=== PATIENT | male | born 1950 | race Caucasian/White ===

== ENCOUNTER 2016-05-29 19:38 | Emergency (ER) | payer SELFPAY ==
[~2016-05-29] VITALS: Ht 157.5 cm; Wt 68.0 kg
[2016-05-29 22:15] VITALS: BP 141/73
[2016-05-29] MEDS ORDERED: HydrALAZINE HCL 20 MG/ML VIAL IVP ONE (22:45)
[2016-05-29] MEDS ORDERED: FOLI1TAB61 PO (22:56)
[2016-05-30 00:12] LABS: GLUCOSE,POINT OF CARE 83 MG/DL (70-110)
== END 2016-05-29 22:36 | disposition left against medical advice (07) ==
LOC: EMS 19:45
DX: T82.49XD Other complication of vascular dialysis catheter, subsequent encounter (principal)
CPT/HCPCS: 82962; 99281; 99282

== ENCOUNTER 2016-05-29 22:52 | Inpatient (IN) | payer MEDICARE ==
[~2016-05-29] VITALS: Ht 165.1 cm; Wt 58.1 kg
[2016-05-29] MEDS ORDERED: FOLI1TAB61 PO (22:56)
[2016-05-29 23:47] LABS: BASOPHILS % (AUTO) 0.5 % (0.0-2.0); EOSINOPHILS % (AUTO) 5.3 % (1.0-6.0); HEMATOCRIT 33.7 % (41-53); HEMOGLOBIN 11.3 g/dL (13.5-17.5); LYMPHOCYTES # (AUTO) 1.1 K/uL (1.0-4.8); LYMPHOCYTES % (AUTO) 20.4 % (22.0-44.0); MEAN CORPUSCULAR HEMOGLOBIN 34.2 pg (26.0-34.0); MEAN CORPUSCULAR HGB CONC 33.5 G/dL (31.0-37.0); MEAN CORPUSCULAR VOLUME 102 fL (80-100); MONOCYTES # (AUTO) 0.4 K/uL (0.1-1.0); NEUTROPHILS # (AUTO) 3.7 K/uL (1.8-7.7); NEUTROPHILS % (AUTO) 66.8 % (40.0-70.0); PLATELET COUNT (AUTO) 160 K/uL (150-450); RED BLOOD CELL COUNT(AUTO) 3.31 MIL/uL (4.50-5.90); RED CELL DISTRIBUTION WIDTH 15.2 % (11.5-14.5); WHITE BLOOD COUNT (AUTO) 5.5 K/uL (4.5-11.0)
[2016-05-29 23:51] LABS: APPEARANCE,URINE CLOUDY (CLEAR); GLUCOSE, URINE (UA) NEGATIVE (NEGATIVE); KETONES,URINE NEGATIVE (NEGATIVE); LEUKOCYTE ESTERASE ,URINE LARGE (NEGATIVE); OCCULT BLOOD,URINE SMALL (NEGATIVE); PROTEIN,URINE SEE CONFIRM (NEGATIVE)
[2016-05-30] LABS: ANION GAP 14 mmol/L (8-16); CALCIUM, TOTAL 8.6 mg/dL (8.8-10.5); CARBON DIOXIDE 19 mmol/L (22-29); CHLORIDE 103 mmol/L (98-107); GLOMERULAR FILTR. RATE CALC 6 mL/min (>60); POTASSIUM 5.3 mmol/L (3.5-5.1); SODIUM SERUM 136 mmol/L (136-145); UREA NITROGEN, BLOOD 92 mg/dL (7-18)
[2016-05-30 00:06] LABS: ALANINE AMINOTRANSFERASE 56 U/L (12-78); ALBUMIN 3.6 g/dL (3.4-5.0); ASPARTATE AMINOTRANSFERASE 40 U/L (15-37); BILIRUBIN,TOTAL 0.6 mg/dL (0.1-1.0); LACTIC ACID 0.9 mmol/L (0.4-2.0); TOTAL PROTEIN, SERUM 8.1 g/dL (6.4-8.2)
[2016-05-30 00:08] LABS: B-TYPE NATRIURETIC PEPTIDE 302 pg/mL (0-100)
[2016-05-30 00:15] LABS: SQUAMOUS EPITHELIAL CELL,UR Few /LPF (None Seen); WBC,URINE >100 /HPF (0-5)
[2016-05-30 00:17] LABS: SULFOSALICYLIC ACID,URINE 2+ (Negative)
[2016-05-30 01:08] LABS: RBC MORPHOLOGY COMMENT ABNORMAL RBC MORPH
[2016-05-30] MEDS ORDERED: 0.9% SODIUM CHLORIDE 10 ML SYRINGE IVP PRN (01:45)
[2016-05-30] MEDS ORDERED: ACETAMINOPHEN 325 MG TABLET PO PRN ×2 (01:45→02:45)
[2016-05-30] MEDS ORDERED: ONDANSETRON HCL 4 MG/2 ML VIAL IVP PRN ×2 (01:45→02:45)
[2016-05-30] MEDS ORDERED: SODIUM POLYSTYRENE SULFONATE 15 GM/60 ML SUSPENSION BOTTLE PO ONE (01:45)
[2016-05-30] MEDS ORDERED: MAGNESIUM HYDROXIDE SUSPENSION 30 ML UDCUP PO PRN (02:45)
[2016-05-30] MEDS ORDERED: IPRATROPIUM BROMIDE 0.5 MG/2.5 ML NEB SOLUTION NEB PRN (02:45)
[2016-05-30] MEDS ORDERED: HYDROCODONE/ACETAMINOPHEN 5-325 MG TABLET PO PRN (02:45)
[2016-05-30] MEDS ORDERED: BISACODYL 10 MG RECTAL RECTAL SUPPOSITORY PR PRN (02:45)
[2016-05-30] MEDS ORDERED: ALBUTEROL SULFATE 2.5 MG/0.5 ML NEB SOLUTION NEB PRN (02:45)
[2016-05-30] MEDS ORDERED: ZOLPIDEM TARTRATE 5 MG TABLET PO PRN (02:45)
[2016-05-30 03:18] VITALS: BP 134/69
[2016-05-30 08:11] VITALS: BP 162/77
[2016-05-30] MEDS ORDERED: MIDODRINE HCL 5 MG TABLET PO PRN (08:30)
[2016-05-30] MEDS: -PHARMACY NOTE- MISC SCH ×2 (09:00)
[2016-05-30 10:00] LABS: BASOPHILS % (AUTO) 0.4 % (0.0-2.0); EOSINOPHILS % (AUTO) 6.9 % (1.0-6.0); HEMATOCRIT 28.4 % (41-53); HEMOGLOBIN 9.5 g/dL (13.5-17.5); LYMPHOCYTES # (AUTO) 0.8 K/uL (1.0-4.8); LYMPHOCYTES % (AUTO) 24.6 % (22.0-44.0); MEAN CORPUSCULAR HEMOGLOBIN 33.7 pg (26.0-34.0); MEAN CORPUSCULAR HGB CONC 33.6 G/dL (31.0-37.0); MEAN CORPUSCULAR VOLUME 101 fL (80-100); MONOCYTES # (AUTO) 0.3 K/uL (0.1-1.0); MONOCYTES % (AUTO) 9.6 % (2.0-9.0); NEUTROPHILS # (AUTO) 1.9 K/uL (1.8-7.7); NEUTROPHILS % (AUTO) 58.5 % (40.0-70.0); PLATELET COUNT (AUTO) 123 K/uL (150-450); RED BLOOD CELL COUNT(AUTO) 2.83 MIL/uL (4.50-5.90); RED CELL DISTRIBUTION WIDTH 15.4 % (11.5-14.5); WHITE BLOOD COUNT (AUTO) 3.2 K/uL (4.5-11.0)
[2016-05-30 10:10] LABS: ALBUMIN 2.9 g/dL (3.4-5.0); BILIRUBIN,TOTAL 0.4 mg/dL (0.1-1.0); CALCIUM, TOTAL 8.2 mg/dL (8.8-10.5); CREATININE 8.8 mg/dL (0.60-1.30); POTASSIUM 4.8 mmol/L (3.5-5.1); TOTAL PROTEIN, SERUM 6.4 g/dL (6.4-8.2)
[2016-05-30 10:12] LABS: RBC MORPHOLOGY COMMENT ABNORMAL RBC MORPH
[2016-05-30] MEDS: CIPROFLOXACIN HCL 500 MG TABLET PO SCH ×2 (10:18→20:36)
[2016-05-30] MEDS: PANTOPRAZOLE SODIUM 40 MG DR TABLET PO SCH (10:18)
[2016-05-30] MEDS: VITAMIN B COMP/VIT C/FOLIC ACID CAPSULE PO SCH (10:18)
[2016-05-30 20:18] VITALS: BP 125/75
[2016-05-31 00:08] VITALS: BP 135/75
[2016-05-31] MEDS: EPOETIN ALFA 10,000 UNITS/ML VIAL SQ SCH ×2 (09:00→09:04)
[2016-05-31] MEDS: -PHARMACY NOTE- MISC SCH ×2 (09:00)
[2016-05-31] MEDS: PANTOPRAZOLE SODIUM 40 MG DR TABLET PO SCH (09:04)
[2016-05-31] MEDS: CIPROFLOXACIN HCL 500 MG TABLET PO SCH (09:04)
[2016-05-31] MEDS: VITAMIN B COMP/VIT C/FOLIC ACID CAPSULE PO SCH (09:04)
[2016-05-31 09:32] LABS: BASOPHILS % (AUTO) 0.6 % (0.0-2.0); EOSINOPHILS % (AUTO) 3.7 % (1.0-6.0); HEMATOCRIT 36.1 % (41-53); HEMOGLOBIN 12.2 g/dL (13.5-17.5); LYMPHOCYTES # (AUTO) 0.9 K/uL (1.0-4.8); LYMPHOCYTES % (AUTO) 18.3 % (22.0-44.0); MEAN CORPUSCULAR HEMOGLOBIN 34.2 pg (26.0-34.0); MEAN CORPUSCULAR HGB CONC 33.8 G/dL (31.0-37.0); MEAN CORPUSCULAR VOLUME 101 fL (80-100); MONOCYTES # (AUTO) 0.4 K/uL (0.1-1.0); MONOCYTES % (AUTO) 8.6 % (2.0-9.0); NEUTROPHILS # (AUTO) 3.5 K/uL (1.8-7.7); NEUTROPHILS % (AUTO) 68.8 % (40.0-70.0); PLATELET COUNT (AUTO) 196 K/uL (150-450); RED BLOOD CELL COUNT(AUTO) 3.58 MIL/uL (4.50-5.90); RED CELL DISTRIBUTION WIDTH 15.6 % (11.5-14.5); WHITE BLOOD COUNT (AUTO) 5.1 K/uL (4.5-11.0)
[2016-05-31 09:55] LABS: ALBUMIN 3.6 g/dL (3.4-5.0); BILIRUBIN,TOTAL 0.6 mg/dL (0.1-1.0); CALCIUM, TOTAL 9.4 mg/dL (8.8-10.5); CHOL/HDL RATIO 2.9 (4.2-7.3); CREATININE 5.12 mg/dL (0.60-1.30); MAGNESIUM 1.7 mg/dL (1.80-2.40); PHOSPHORUS 4.7 mg/dL (2.5-4.9); POTASSIUM 4.2 mmol/L (3.5-5.1); THYROID STIMULATING HORMONE 1.3 uIU/mL (0.36-3.74); TOTAL PROTEIN, SERUM 8.1 g/dL (6.4-8.2)
[2016-05-31] MEDS ORDERED: LIDOCAINE HCL/PF 1% 2 ML VIAL ID PRN (10:00)
[2016-05-31] MEDS ORDERED: MANNITOL 25%-12.5 GM/50 ML VIAL IVP PRN (10:00)
[2016-05-31] MEDS ORDERED: ALBUMIN HUMAN 25%-12.5GM/50ML IV BOTTLE IV PRN (10:00)
[2016-05-31 10:08] LABS: RBC MORPHOLOGY COMMENT ABNORMAL RBC MORPH
[2016-05-31] MEDS ORDERED: LIDOCAINE HCL/PF 1% 2 ML VIAL IM ONE (14:04)
[2016-05-31] MEDS ORDERED: ALBUMIN HUMAN 25%-12.5GM/50ML IV BOTTLE IV ONE (14:04)
== END 2016-05-31 14:05 | disposition home or self-care (01) | DRG 682 ==
LOC: EMS 22:58 → 6N 05-30 03:12
PROVIDERS: ADMIT Internal Medicine; ATTEND Internal Medicine
PROC: 5A1D60Z (ICD-10-PCS; principal; 2016-05-30)
DX: I12.0 Hypertensive chronic kidney disease with stage 5 chronic kidney disease or end stage renal disease (principal); N18.6 End stage renal disease; N39.0 Urinary tract infection, site not specified; E87.5 Hyperkalemia; E83.51 Hypocalcemia; F02.80 Dementia in other diseases classified elsewhere, unspecified severity, without behavioral disturbance, psychotic disturbance, mood disturbance, and anxiety; G30.9 Alzheimer's disease, unspecified; D63.1 Anemia in chronic kidney disease; Z53.29 Procedure and treatment not carried out because of patient's decision for other reasons; Z99.2 Dependence on renal dialysis
CPT/HCPCS: 82306; 83540; 83550; 83605; 83735; 83970; 84100; 84443; 87086; 87340; 93005; 99285; G0480; J0885; J2405; J3490; P9047

== ENCOUNTER 2016-06-22 09:27 | Inpatient (IN) | payer MEDICARE ==
[~2016-06-22] VITALS: Ht 157.5 cm; Wt 61.0 kg
[~2016-06-22 09:27] MED LIST: FOLI1TAB61 PO
[2016-06-22] MEDS ORDERED: ACETAMINOPHEN 325 MG TABLET PO ONE (10:00)
[2016-06-22 10:23] LABS: BASOPHILS % (AUTO) 0.1 % (0.0-2.0); EOSINOPHILS % (AUTO) 0 % (1.0-6.0); HEMATOCRIT 31.3 % (41-53); HEMOGLOBIN 10.4 g/dL (13.5-17.5); LYMPHOCYTES # (AUTO) 0.1 K/uL (1.0-4.8); LYMPHOCYTES % (AUTO) 2.2 % (22.0-44.0); MEAN CORPUSCULAR HEMOGLOBIN 33.6 pg (26.0-34.0); MEAN CORPUSCULAR HGB CONC 33.3 G/dL (31.0-37.0); MEAN CORPUSCULAR VOLUME 101 fL (80-100); MONOCYTES # (AUTO) 0.2 K/uL (0.1-1.0); MONOCYTES % (AUTO) 3.5 % (2.0-9.0); NEUTROPHILS # (AUTO) 6.2 K/uL (1.8-7.7); NEUTROPHILS % (AUTO) 94.2 % (40.0-70.0); PLATELET COUNT (AUTO) 126 K/uL (150-450); RED CELL DISTRIBUTION WIDTH 14.7 % (11.5-14.5); WHITE BLOOD COUNT (AUTO) 6.6 K/uL (4.5-11.0)
[2016-06-22 10:24] LABS: CALCIUM, TOTAL 8.4 mg/dL (8.8-10.5); POTASSIUM 4.4 mmol/L (3.5-5.1)
[2016-06-22 10:32] LABS: CREATININE 8.01 mg/dL (0.60-1.30)
[2016-06-22 10:38] LABS: LACTIC ACID 1.2 mmol/L (0.4-2.0)
[2016-06-22 10:42] LABS: ALBUMIN 3.3 g/dL (3.4-5.0); BILIRUBIN,TOTAL 0.8 mg/dL (0.1-1.0)
[2016-06-22 10:43] LABS: TOTAL PROTEIN, SERUM 7.7 g/dL (6.4-8.2)
[2016-06-22 10:46] LABS: RBC MORPHOLOGY COMMENT ABNORMAL RBC MORPH
[2016-06-22 11:04] LABS: APPEARANCE,URINE CLOUDY (CLEAR); GLUCOSE, URINE (UA) NEGATIVE (NEGATIVE); KETONES,URINE NEGATIVE (NEGATIVE); LEUKOCYTE ESTERASE ,URINE LARGE (NEGATIVE); OCCULT BLOOD,URINE LARGE (NEGATIVE); PROTEIN,URINE SEE CONFIRM (NEGATIVE)
[2016-06-22 11:11] LABS: RBC,URINE >100 /HPF (0-2); SULFOSALICYLIC ACID,URINE 4+ (Negative)
[2016-06-22 11:12] LABS: WBC,URINE 51-100 /HPF (0-5)
[2016-06-22 11:14] LABS: SQUAMOUS EPITHELIAL CELL,UR Few /LPF (None Seen)
[2016-06-22 11:19] LABS: PROCALCITONIN (PCT) 0.99 ng/mL (<0.50)
[2016-06-22] MEDS ORDERED: CefTRIAXone 1 GM/DEXTROSE 50 ML IV ONE (11:30)
[2016-06-22] MEDS ORDERED: LIDOCAINE HCL/PF 1% 2 ML VIAL INJ ONE (12:00)
[2016-06-22] MEDS ORDERED: ACETAMINOPHEN 325 MG TABLET PO PRN (12:30)
[2016-06-22] MEDS ORDERED: ONDANSETRON HCL 4 MG/2 ML VIAL IVP PRN (12:30)
[2016-06-22] MEDS ORDERED: 0.9% SODIUM CHLORIDE 10 ML SYRINGE IVP PRN (13:15)
[2016-06-22 13:32] VITALS: BP 102/57
[2016-06-22 16:21] VITALS: BP 97/57
[2016-06-22] MEDS ORDERED: SODIUM CHLORIDE 0.9% 2,000 ML IV ONE (16:34)
[2016-06-22] MEDS ORDERED: ALBUMIN HUMAN 25%-12.5GM/50ML IV BOTTLE IV PRN (17:00)
[2016-06-22] MEDS ORDERED: MANNITOL 25%-12.5 GM/50 ML VIAL IVP PRN (17:00)
[2016-06-22] MEDS ORDERED: VANCOMYCIN HCL 1 GM/D5% WATER 200 ML IV ONE (17:00)
[2016-06-22] MEDS ORDERED: VANCOMYCIN HCL 1 GM/D5% WATER 200 ML IV PRN (17:00)
[2016-06-22 19:22] LABS: CALCIUM, TOTAL 8.6 mg/dL (8.8-10.5); CREATININE 4.01 mg/dL (0.60-1.30); POTASSIUM 4.1 mmol/L (3.5-5.1)
[2016-06-22 21:14] VITALS: BP 105/63
[2016-06-22 23:50] VITALS: BP 100/58
[2016-06-23 04:54] VITALS: BP 104/64
[2016-06-23] MEDS ORDERED: PNEUMOCOCCAL VACCINE POLYVALENT 0.5 ML VIAL [PPSV23] IM ONE (06:15)
[2016-06-23 07:20] VITALS: BP 101/47
[2016-06-23 09:36] LABS: BASOPHILS % (AUTO) 0.1 % (0.0-2.0); EOSINOPHILS % (AUTO) 0.03 % (1.0-6.0); HEMATOCRIT 29.3 % (41-53); HEMOGLOBIN 10.1 g/dL (13.5-17.5); LYMPHOCYTES # (AUTO) 0.3 K/uL (1.0-4.8); LYMPHOCYTES % (AUTO) 5.1 % (22.0-44.0); MEAN CORPUSCULAR HEMOGLOBIN 34.9 pg (26.0-34.0); MEAN CORPUSCULAR HGB CONC 34.4 G/dL (31.0-37.0); MEAN CORPUSCULAR VOLUME 101 fL (80-100); MONOCYTES # (AUTO) 0.6 K/uL (0.1-1.0); MONOCYTES % (AUTO) 10.4 % (2.0-9.0); NEUTROPHILS # (AUTO) 4.8 K/uL (1.8-7.7); NEUTROPHILS % (AUTO) 84.4 % (40.0-70.0); PLATELET COUNT (AUTO) 117 K/uL (150-450); RED BLOOD CELL COUNT(AUTO) 2.89 MIL/uL (4.50-5.90); RED CELL DISTRIBUTION WIDTH 15.1 % (11.5-14.5); WHITE BLOOD COUNT (AUTO) 5.7 K/uL (4.5-11.0)
[2016-06-23 10:00] LABS: CALCIUM, TOTAL 8.7 mg/dL (8.8-10.5); CREATININE 5.96 mg/dL (0.60-1.30); PHOSPHORUS 6.6 mg/dL (2.5-4.9); POTASSIUM 5.8 mmol/L (3.5-5.1)
[2016-06-23 10:05] LABS: RBC MORPHOLOGY COMMENT ABNORMAL RBC MORPH
[2016-06-23] MEDS ORDERED: SODIUM POLYSTYRENE SULFONATE 15 GM/60 ML SUSPENSION BOTTLE PO ONE (10:30)
[2016-06-23] MEDS ORDERED: SODIUM CHLORIDE 0.9% 250 ML IV ONE (10:51)
[2016-06-23] MEDS: CefTRIAXone 1 GM/DEXTROSE 50 ML IV SCH ×2 (11:00→13:17)
[2016-06-23 11:08] VITALS: BP 117/74
[2016-06-23 15:20] VITALS: BP 116/62
[2016-06-23 19:23] VITALS: BP 96/57
[2016-06-23 23:40] VITALS: BP 109/51
[2016-06-24 04:39] VITALS: BP 104/56
[2016-06-24 07:15] VITALS: BP 92/60
[2016-06-24 07:57] LABS: CREATININE 7.22 mg/dL (0.60-1.30); MAGNESIUM 1.8 mg/dL (1.80-2.40); PHOSPHORUS 5.8 mg/dL (2.5-4.9); POTASSIUM 3.6 mmol/L (3.5-5.1)
[2016-06-24] MEDS ORDERED: VANCOMYCIN HCL 1 GM/D5% WATER 200 ML IV ONE (11:00)
[2016-06-24 11:14] VITALS: BP 114/59
[2016-06-24 15:46] VITALS: BP 101/61
[2016-06-24 20:34] VITALS: BP 109/64
[2016-06-25] VITALS (7 sets, daily range): BP systolic 108–131; BP diastolic 48–71
[2016-06-25] MEDS: EPOETIN ALFA 10,000 UNITS/ML 2 ML VIAL SQ SCH (08:00)
[2016-06-25] MEDS ORDERED: SODIUM CHLORIDE 0.9% 2,000 ML IV ONE (11:01)
[2016-06-26 04:26] LABS: APPEARANCE,URINE CLOUDY (CLEAR); GLUCOSE, URINE (UA) NEGATIVE (NEGATIVE); KETONES,URINE NEGATIVE (NEGATIVE); LEUKOCYTE ESTERASE ,URINE LARGE (NEGATIVE); OCCULT BLOOD,URINE NEGATIVE (NEGATIVE); PH,URINE 8.5 (5.0-8.0); PROTEIN,URINE SEE CONFIRM (NEGATIVE)
[2016-06-26 05:06] LABS: RBC,URINE 0-2 /HPF (0-2); SULFOSALICYLIC ACID,URINE 3+ (Negative)
[2016-06-26 05:07] LABS: SQUAMOUS EPITHELIAL CELL,UR Few /LPF (None Seen); WBC,URINE 26-50 /HPF (0-5)
[2016-06-26 05:48] VITALS: BP 123/71
[2016-06-26 12:49] VITALS: BP 95/55
[2016-06-26 19:38] VITALS: BP 98/48
[2016-06-26 23:48] VITALS: BP 100/60
[2016-06-27 04:57] VITALS: BP 111/59
[2016-06-27 07:00] LABS: BASOPHILS # (AUTO) 0.02 K/uL (0.00-0.20); BASOPHILS % (AUTO) 0.4 % (0.0-2.0); EOSINOPHILS # (AUTO) 0.13 K/uL (0.00-0.70); EOSINOPHILS % (AUTO) 2.62 % (1.0-6.0); HEMATOCRIT 26.2 % (41-53); HEMOGLOBIN 8.9 g/dL (13.5-17.5); LYMPHOCYTES # (AUTO) 0.8 K/uL (1.0-4.8); MEAN CORPUSCULAR HEMOGLOBIN 33.8 pg (26.0-34.0); MEAN CORPUSCULAR HGB CONC 33.9 G/dL (31.0-37.0); MEAN CORPUSCULAR VOLUME 100 fL (80-100); MONOCYTES # (AUTO) 0.5 K/uL (0.1-1.0); MONOCYTES % (AUTO) 10.6 % (2.0-9.0); NEUTROPHILS # (AUTO) 3.4 K/uL (1.8-7.7); NEUTROPHILS % (AUTO) 69.4 % (40.0-70.0); PLATELET COUNT (AUTO) 114 K/uL (150-450); RED BLOOD CELL COUNT(AUTO) 2.63 MIL/uL (4.50-5.90); RED CELL DISTRIBUTION WIDTH 14.5 % (11.5-14.5); WHITE BLOOD COUNT (AUTO) 4.8 K/uL (4.5-11.0)
[2016-06-27 07:18] VITALS: BP 107/56
[2016-06-27 07:36] LABS: CREATININE 6.98 mg/dL (0.60-1.30); POTASSIUM 4.5 mmol/L (3.5-5.1)
[2016-06-27] MEDS ORDERED: SODIUM CHLORIDE 0.9% 2,000 ML IV ONE (07:55)
[2016-06-27] MEDS ORDERED: VANCOMYCIN HCL 1 GM/D5% WATER 200 ML IV ONE (08:00)
[2016-06-27] MEDS ORDERED: MANNITOL 25%-12.5 GM/50 ML VIAL IVP PRN ×2 (08:15→14:00)
[2016-06-27] MEDS: EPOETIN ALFA 10,000 UNITS/ML 2 ML VIAL SQ SCH (13:09)
[2016-06-27] MEDS ORDERED: LIDOCAINE HCL/PF 1% 2 ML VIAL ID PRN (14:00)
[2016-06-27 15:37] VITALS: BP 118/72
[2016-06-27] MEDS ORDERED: LIDOCAINE HCL/PF 1% 2 ML VIAL IM ONE (16:45)
[2016-06-27 19:30] VITALS: BP 92/54
[2016-06-27 23:22] VITALS: BP 116/57
[2016-06-28 04:28] VITALS: BP 99/58
[2016-06-28] MEDS: ACETAMINOPHEN 325 MG TABLET PO PRN (06:11)
[2016-06-28 07:21] VITALS: BP 99/51
[2016-06-28 11:46] VITALS: BP 111/65
[2016-06-28 15:53] VITALS: BP 110/58
[2016-06-28 19:57] VITALS: BP 119/65
[2016-06-28 23:58] VITALS: BP 121/69
[2016-06-29 05:00] VITALS: BP 106/62
[2016-06-29 07:28] VITALS: BP 119/70
[2016-06-29] MEDS: ACETAMINOPHEN 325 MG TABLET PO PRN (13:26)
[2016-06-29] MEDS ORDERED: VANCOMYCIN HCL 1.25 GM in DEXTROSE 5%-WATER 250 ML IV ONE (17:00)
[2016-06-29] MEDS: CALCIUM ACETATE 667 MG CAPSULE PO SCH (18:44)
[2016-06-29] MEDS: EPOETIN ALFA 10,000 UNITS/ML 2 ML VIAL SQ SCH (18:44)
[2016-06-29 20:00] VITALS: BP 133/75
[2016-06-29] MEDS ORDERED: PIPERACILLIN SODIUM/TAZOBACTAM 0.75 GM in DEXTROSE 5%-WATER 50 ML IV PRN (22:15)
[2016-06-29 23:39] VITALS: BP 123/67
[2016-06-30] MEDS ORDERED: PIPERACILLIN SODIUM/TAZOBACTAM 2.25 GM in DEXTROSE 5%-WATER 50 ML IV SCH ×2
[2016-06-30 04:44] VITALS: BP 122/64
[2016-06-30] MEDS: ACETAMINOPHEN 325 MG TABLET PO PRN (06:47)
[2016-06-30] MEDS: CALCIUM ACETATE 667 MG CAPSULE PO SCH (08:02)
== END 2016-06-30 11:03 | disposition home or self-care (01) | DRG 871 ==
LOC: EMS 09:28 → 6N 12:32
PROVIDERS: ADMIT Family Medicine; ATTEND Family Medicine
PROC: 5A1D60Z (ICD-10-PCS; principal; 2016-06-22)
DX: A41.02 Sepsis due to Methicillin resistant Staphylococcus aureus (principal); N18.6 End stage renal disease; N39.0 Urinary tract infection, site not specified; I12.0 Hypertensive chronic kidney disease with stage 5 chronic kidney disease or end stage renal disease; T82.868A Thrombosis due to vascular prosthetic devices, implants and grafts, initial encounter; I82.602 Acute embolism and thrombosis of unspecified veins of left upper extremity; J44.9 Chronic obstructive pulmonary disease, unspecified; E87.5 Hyperkalemia; D63.1 Anemia in chronic kidney disease; F03.90 Unspecified dementia, unspecified severity, without behavioral disturbance, psychotic disturbance, mood disturbance, and anxiety; E21.3 Hyperparathyroidism, unspecified; I70.0 Atherosclerosis of aorta; F43.21 Adjustment disorder with depressed mood; I34.0 Nonrheumatic mitral (valve) insufficiency; I07.1 Rheumatic tricuspid insufficiency; Z53.29 Procedure and treatment not carried out because of patient's decision for other reasons; Y84.1 Kidney dialysis as the cause of abnormal reaction of the patient, or of later complication, without mention of misadventure at the time of the procedure; Y92.89 Other specified places as the place of occurrence of the external cause; Y93.89 Activity, other specified; Z79.899 Other long term (current) drug therapy; Z98.890 Other specified postprocedural states; Z99.2 Dependence on renal dialysis; Y99.8 Other external cause status; Z28.21 Immunization not carried out because of patient refusal
CPT/HCPCS: 51701; 83605; 83735; 83970; 84100; 84145; 87040; 87086; 87340; 93005; 93306; 93990; 96365; 99285; J0696; J0885; J2543; J3370; J3490; J7030; J7050; J7060

== ENCOUNTER 2016-11-22 12:13 | Inpatient (IN) | payer MEDICAID, MEDICARE ==
[~2016-11-22] VITALS: Ht 152.4 cm; Wt 62.0 kg
[2016-11-22 12:46] LABS: BASOPHILS % (AUTO) 0.4 % (0.0-2.0); EOSINOPHILS % (AUTO) 3.9 % (1.0-6.0); HEMOGLOBIN 8.9 g/dL (13.5-17.5); LYMPHOCYTES # (AUTO) 0.8 K/uL (1.0-4.8); LYMPHOCYTES % (AUTO) 17.1 % (22.0-44.0); MEAN CORPUSCULAR HEMOGLOBIN 33.8 pg (26.0-34.0); MEAN CORPUSCULAR HGB CONC 34.4 G/dL (31.0-37.0); MEAN CORPUSCULAR VOLUME 98 fL (80-100); MONOCYTES # (AUTO) 0.3 K/uL (0.1-1.0); MONOCYTES % (AUTO) 7.2 % (2.0-9.0); NEUTROPHILS # (AUTO) 3.2 K/uL (1.8-7.7); NEUTROPHILS % (AUTO) 71.4 % (40.0-70.0); PLATELET COUNT (AUTO) 159 K/uL (150-450); RED BLOOD CELL COUNT(AUTO) 2.64 MIL/uL (4.50-5.90); RED CELL DISTRIBUTION WIDTH 14.6 % (11.5-14.5); WHITE BLOOD COUNT (AUTO) 4.6 K/uL (4.5-11.0)
[2016-11-22 12:57] LABS: CALCIUM, TOTAL 8.9 mg/dL (8.8-10.5); CREATININE 13.35 mg/dL (0.60-1.30); POTASSIUM 5.3 mmol/L (3.5-5.1)
[2016-11-22] MEDS ORDERED: ACETAMINOPHEN 325 MG TABLET PO PRN (14:00)
[2016-11-22] MEDS ORDERED: ONDANSETRON HCL 4 MG/2 ML VIAL IVP PRN (14:00)
[2016-11-22] MEDS ORDERED: EPOETIN ALFA 10,000 UNITS/ML 2 ML VIAL SQ PRN (14:30)
[2016-11-22 15:08] VITALS: BP 161/93
[2016-11-22] MEDS ORDERED: PNEUMOCOCCAL VACCINE POLYVALENT 0.5 ML VIAL [PPSV23] IM ONE (18:30)
[2016-11-22 20:00] VITALS: BP 147/89
[2016-11-23] VITALS: BP 148/68
[2016-11-23 04:00] VITALS: BP 151/87
[2016-11-23 07:19] VITALS: BP 146/86
[2016-11-23 08:07] LABS: BASOPHILS % (AUTO) 0.5 % (0.0-2.0); EOSINOPHILS % (AUTO) 6.8 % (1.0-6.0); HEMATOCRIT 26.7 % (41-53); HEMOGLOBIN 9.4 g/dL (13.5-17.5); LYMPHOCYTES # (AUTO) 0.8 K/uL (1.0-4.8); LYMPHOCYTES % (AUTO) 17.9 % (22.0-44.0); MEAN CORPUSCULAR HEMOGLOBIN 34.3 pg (26.0-34.0); MEAN CORPUSCULAR HGB CONC 35.1 G/dL (31.0-37.0); MEAN CORPUSCULAR VOLUME 98 fL (80-100); MONOCYTES # (AUTO) 0.4 K/uL (0.1-1.0); NEUTROPHILS # (AUTO) 3.1 K/uL (1.8-7.7); NEUTROPHILS % (AUTO) 66.8 % (40.0-70.0); PLATELET COUNT (AUTO) 163 K/uL (150-450); RED BLOOD CELL COUNT(AUTO) 2.74 MIL/uL (4.50-5.90); RED CELL DISTRIBUTION WIDTH 14.8 % (11.5-14.5); WHITE BLOOD COUNT (AUTO) 4.7 K/uL (4.5-11.0)
[2016-11-23] MEDS ORDERED: SODIUM CHLORIDE 0.9% 1,000 ML IV ONE ×2 (08:38→08:39)
[2016-11-23 08:40] LABS: CALCIUM, TOTAL 8.5 mg/dL (8.8-10.5); CREATININE 14.21 mg/dL (0.60-1.30); PHOSPHORUS 5.9 mg/dL (2.5-4.9); POTASSIUM 5.5 mmol/L (3.5-5.1)
[2016-11-23] MEDS ORDERED: MANNITOL 25%-12.5 GM/50 ML VIAL IVP PRN (11:45)
[2016-11-23] MEDS ORDERED: ALBUMIN HUMAN 25%-12.5GM/50ML IV BOTTLE IV PRN (11:45)
[2016-11-23] MEDS: PANTOPRAZOLE SODIUM 40 MG DR TABLET PO SCH (11:47)
[2016-11-23] MEDS: VITAMIN B COMP/VIT C/FOLIC ACID CAPSULE PO SCH (11:47)
[2016-11-23] MEDS: CALCITRIOL 0.25 MCG CAPSULE PO SCH (11:47)
[2016-11-23] MEDS: AmLODIPine BESYLATE 10 MG TABLET PO SCH (14:32)
[2016-11-23 15:32] VITALS: BP 145/76
[2016-11-23 21:12] VITALS: BP 118/54
[2016-11-23] MEDS: ACETAMINOPHEN 325 MG TABLET PO PRN (23:19)
[2016-11-24 04:53] VITALS: BP 151/85
[2016-11-24] MEDS: VITAMIN B COMP/VIT C/FOLIC ACID CAPSULE PO SCH (08:02)
[2016-11-24] MEDS: PANTOPRAZOLE SODIUM 40 MG DR TABLET PO SCH (08:02)
[2016-11-24] MEDS: AmLODIPine BESYLATE 10 MG TABLET PO SCH (08:02)
[2016-11-24 08:04] VITALS: BP 151/86
[2016-11-24 08:56] LABS: CALCIUM, TOTAL 8.5 mg/dL (8.8-10.5); CREATININE 10.05 mg/dL (0.60-1.30); POTASSIUM 5.9 mmol/L (3.5-5.1)
[2016-11-24] MEDS ORDERED: SODIUM POLYSTYRENE SULFONATE 15 GM/60 ML SUSPENSION BOTTLE PR ONE (10:45)
[2016-11-24 19:55] VITALS: BP 146/84
[2016-11-24] MEDS: ACETAMINOPHEN 325 MG TABLET PO PRN (20:09)
[2016-11-24 23:58] VITALS: BP 134/70
[2016-11-25] MEDS: ACETAMINOPHEN 325 MG TABLET PO PRN ×3 (02:53→19:50)
[2016-11-25 05:03] VITALS: BP 122/65
[2016-11-25 07:32] VITALS: BP 143/78
[2016-11-25] MEDS: VITAMIN B COMP/VIT C/FOLIC ACID CAPSULE PO SCH (09:44)
[2016-11-25] MEDS: AmLODIPine BESYLATE 10 MG TABLET PO SCH (09:44)
[2016-11-25] MEDS: PANTOPRAZOLE SODIUM 40 MG DR TABLET PO SCH (09:44)
[2016-11-25] MEDS: LORazepam 1 MG TABLET PO PRN ×2 (09:44→15:37)
[2016-11-25 15:25] VITALS: BP 147/77
[2016-11-25] MEDS: SODIUM BICARBONATE 650 MG TABLET PO SCH ×2 (15:37→19:45)
[2016-11-25] MEDS ORDERED: LORazepam 1 MG TABLET PO SCH (16:00)
[2016-11-25 19:43] VITALS: BP 118/63
[2016-11-25] MEDS: HYDROCODONE/ACETAMINOPHEN 5-325 MG TABLET PO PRN (23:10)
[2016-11-25 23:38] VITALS: BP 138/84
[2016-11-26] MEDS: LORazepam 1 MG TABLET PO PRN (04:42)
[2016-11-26 05:01] VITALS: BP 126/58
[2016-11-26] MEDS ORDERED: LORazepam 2 MG TABLET PO ONE (08:30)
[2016-11-26] MEDS ORDERED: RisperiDONE 1 MG TABLET PO ONE (08:30)
[2016-11-26] MEDS: AmLODIPine BESYLATE 10 MG TABLET PO SCH (08:55)
[2016-11-26] MEDS: PANTOPRAZOLE SODIUM 40 MG DR TABLET PO SCH (08:56)
[2016-11-26] MEDS: CALCITRIOL 0.25 MCG CAPSULE PO SCH (08:56)
[2016-11-26] MEDS: SODIUM BICARBONATE 650 MG TABLET PO SCH ×3 (08:56→20:37)
[2016-11-26] MEDS: VITAMIN B COMP/VIT C/FOLIC ACID CAPSULE PO SCH (08:56)
[2016-11-26] MEDS ORDERED: -EPOGEN NOTE- MISC SCH (09:00)
[2016-11-26] MEDS ORDERED: SODIUM CHLORIDE 0.9% 2,000 ML IV ONE (10:17)
[2016-11-26] MEDS ORDERED: MANNITOL 25%-12.5 GM/50 ML VIAL IVP PRN (12:00)
[2016-11-26] MEDS ORDERED: LIDOCAINE HCL/PF 1% 2 ML VIAL ID PRN (12:00)
[2016-11-26] MEDS ORDERED: DiphenhydrAMINE HCL 50 MG/ML VIAL IVP PRN (12:00)
[2016-11-26 16:29] VITALS: BP 132/76
[2016-11-26] MEDS ORDERED: DiphenhydrAMINE HCL 50 MG/ML VIAL IM ONE (16:35)
[2016-11-26] MEDS ORDERED: LIDOCAINE HCL/PF 1% 2 ML VIAL IARTIC ONE (16:35)
[2016-11-26 20:34] VITALS: BP 125/71
[2016-11-26 23:35] VITALS: BP 128/65
[2016-11-27] MEDS: HYDROCODONE/ACETAMINOPHEN 5-325 MG TABLET PO PRN (02:40)
[2016-11-27 05:12] VITALS: BP 101/58
[2016-11-27 07:59] VITALS: BP 136/76
[2016-11-27] MEDS: PANTOPRAZOLE SODIUM 40 MG DR TABLET PO SCH (08:33)
[2016-11-27] MEDS: VITAMIN B COMP/VIT C/FOLIC ACID CAPSULE PO SCH (08:33)
[2016-11-27] MEDS: LORazepam 1 MG TABLET PO PRN (08:33)
[2016-11-27] MEDS: SODIUM BICARBONATE 650 MG TABLET PO SCH ×3 (08:34→20:18)
[2016-11-27] MEDS: AmLODIPine BESYLATE 10 MG TABLET PO SCH (09:00)
[2016-11-27 09:28] LABS: CALCIUM, TOTAL 8.3 mg/dL (8.8-10.5); CREATININE 8.27 mg/dL (0.60-1.30); MAGNESIUM 1.5 mg/dL (1.80-2.40); PHOSPHORUS 4.1 mg/dL (2.5-4.9); POTASSIUM 4.5 mmol/L (3.5-5.1)
[2016-11-27 09:34] LABS: BASOPHILS % (AUTO) 0.5 % (0.0-2.0); EOSINOPHILS % (AUTO) 9.4 % (1.0-6.0); HEMATOCRIT 26.3 % (41-53); HEMOGLOBIN 9.1 g/dL (13.5-17.5); LYMPHOCYTES # (AUTO) 0.5 K/uL (1.0-4.8); LYMPHOCYTES % (AUTO) 15.3 % (22.0-44.0); MEAN CORPUSCULAR HEMOGLOBIN 33.9 pg (26.0-34.0); MEAN CORPUSCULAR HGB CONC 34.4 G/dL (31.0-37.0); MEAN CORPUSCULAR VOLUME 98 fL (80-100); MONOCYTES # (AUTO) 0.3 K/uL (0.1-1.0); MONOCYTES % (AUTO) 7.5 % (2.0-9.0); NEUTROPHILS # (AUTO) 2.4 K/uL (1.8-7.7); NEUTROPHILS % (AUTO) 67.3 % (40.0-70.0); PLATELET COUNT (AUTO) 134 K/uL (150-450); RED BLOOD CELL COUNT(AUTO) 2.67 MIL/uL (4.50-5.90); RED CELL DISTRIBUTION WIDTH 15.2 % (11.5-14.5); WHITE BLOOD COUNT (AUTO) 3.5 K/uL (4.5-11.0)
[2016-11-27 11:24] VITALS: BP 118/88
[2016-11-27 15:31] VITALS: BP 125/71
[2016-11-27] MEDS: DONEPEZIL HCL 10 MG TABLET PO SCH (17:08)
[2016-11-27 19:32] VITALS: BP 135/73
[2016-11-27] MEDS: RisperiDONE 0.5 MG TABLET PO SCH (20:18)
[2016-11-28 07:39] VITALS: BP 136/73
[2016-11-28] MEDS: SODIUM BICARBONATE 650 MG TABLET PO SCH ×3 (08:59→20:33)
[2016-11-28] MEDS: RisperiDONE 0.5 MG TABLET PO SCH ×2 (08:59→20:33)
[2016-11-28] MEDS: CALCITRIOL 0.25 MCG CAPSULE PO SCH (08:59)
[2016-11-28] MEDS: AmLODIPine BESYLATE 10 MG TABLET PO SCH (08:59)
[2016-11-28] MEDS: DONEPEZIL HCL 10 MG TABLET PO SCH (08:59)
[2016-11-28] MEDS: PANTOPRAZOLE SODIUM 40 MG DR TABLET PO SCH (08:59)
[2016-11-28] MEDS: VITAMIN B COMP/VIT C/FOLIC ACID CAPSULE PO SCH (08:59)
[2016-11-28 10:29] LABS: VITAMIN B12 LEVEL 116 pg/mL (211-911)
[2016-11-28 11:43] VITALS: BP 101/69
[2016-11-28] MEDS ORDERED: LORazepam 1 MG TABLET PO ONE (14:15)
[2016-11-28] MEDS ORDERED: ONDANSETRON HCL 4 MG TABLET PO PRN (14:15)
[2016-11-28] MEDS ORDERED: DiphenhydrAMINE HCL 50 MG/ML VIAL IVP PRN (15:00)
[2016-11-28] MEDS ORDERED: MANNITOL 25%-12.5 GM/50 ML VIAL IVP PRN (15:00)
[2016-11-28] MEDS ORDERED: LIDOCAINE HCL/PF 1% 2 ML VIAL ID PRN (15:00)
[2016-11-28] MEDS ORDERED: SODIUM CHLORIDE 0.9% 2,000 ML IV ONE (15:52)
[2016-11-28 20:35] VITALS: BP 120/68
== END 2016-11-28 22:06 | DRG 640 ==
LOC: EMS 12:14 → 6N 14:03
PROVIDERS: ADMIT Family Medicine; ATTEND Family Medicine
DX: E87.5 Hyperkalemia (principal); N18.6 End stage renal disease; I12.0 Hypertensive chronic kidney disease with stage 5 chronic kidney disease or end stage renal disease; G30.9 Alzheimer's disease, unspecified; F05 Delirium due to known physiological condition; F02.81 Dementia in other diseases classified elsewhere, unspecified severity, with behavioral disturbance; R91.8 Other nonspecific abnormal finding of lung field; D64.9 Anemia, unspecified; F41.9 Anxiety disorder, unspecified; Z86.14 Personal history of Methicillin resistant Staphylococcus aureus infection; Z91.19 Patient's noncompliance with other medical treatment and regimen; Z99.2 Dependence on renal dialysis; Z28.21 Immunization not carried out because of patient refusal
CPT/HCPCS: 70450; 82607; 82746; 83735; 84100; 84443; 87081; 87340; 90935; 93005; 99285; J1200; J3490; J7030; Q0162